=== PATIENT | male | born 1955 | race Caucasian/White ===

== ENCOUNTER → 2018-03-30 09:00 | Emergency (ER) | payer BC, OTHER ==
[~2018-03-30 09:00] MED LIST: Naproxen TAB* 250 MG PO ONE
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
[2018-03-30 09:48] LABS: ABS Basophils 0.1 10^3/ul (0-0.2); ABS Eosinophils 0.2 10^3/ul (0-0.6); ABS Lymphocytes 2.1 10^3/ul (1.0-4.8); ABS Monocytes 0.9 10^3/ul (0-0.8); ABS Neutrophils 7.7 10^3/ul (1.5-7.7); ABS Nucleated RBC 0 10^3/ul; Eosinophil % 1.4 % (0-6); Hematocrit 44 % (42-52); Hemoglobin 15.4 g/dl (14.0-18.0); Lymphocyte % 19.1 % (25-47); Mean Corpuscular HGB Conc 35 g/dl (31-36); Mean Corpuscular Hemoglobin 31 pg (27-31); Mean Corpuscular Volume 88 fL (80-94); Mean Platelet Volume 6.6 um3 (7.4-10.4); Nucleated Red Blood Cells % 0; Platelet Count 268 10^3/ul (150-450); Red Cell Distribution Width 13 % (10.5-15); White Blood Count 10.9 10^3/ul (3.5-10.8)
--- NOTE | 2018-03-30 10:01 | RAD ---
INDICATION: Right ankle pain COMPARISON: None TECHNIQUE: AP, lateral, and oblique views were obtained. FINDINGS: There are no acute bony findings. There is evidence of old fibular fracture with hardware removal. There is an old medial malleolar fracture. There is degenerative change but the tibiotalar joint with cystic changes. There is mild soft tissue swelling. There are vascular calcifications. IMPRESSION: DEGENERATIVE AND POSTTRAUMATIC CHANGES ABOUT THE RIGHT ANKLE. NO ACUTE FINDINGS
[2018-03-30 10:08] LABS: EGFR Non-African American 60.6 (>60); Uric Acid 6.7 mg/dL (4.4-7.6)
[2018-03-30 11:57] VITALS: BP 0/0
== END | disposition home or self-care (01) ==
LOC: ED 09:00
DX: M25.571 Pain in right ankle and joints of right foot (principal); E11.9 Type 2 diabetes mellitus without complications; I10 Essential (primary) hypertension; F17.210 Nicotine dependence, cigarettes, uncomplicated; Z79.84 Long term (current) use of oral hypoglycemic drugs; Z79.899 Other long term (current) drug therapy; Z96.7 Presence of other bone and tendon implants; Z88.8 Allergy status to other drugs, medicaments and biological substances
CPT/HCPCS: 36415; 80053; 83605; 84550; 85025; 85652; 86140; 86618; 99282; A9270-GY

== ENCOUNTER 2019-05-13 08:35 | Emergency (ER) | payer BC, OTHER ==
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
[2019-05-13] MEDS ORDERED: Morphine 4 MG/ML VIAL (1 ml) 4 MG/ML VIAL IV ONE (09:23)
[2019-05-13] MEDS ORDERED: HYDROcodone/ACETAMIN 5-325 MG* 1 TAB PO ONE (09:40)
[2019-05-13 09:43] LABS: Hematocrit 43 % (42-52); Hemoglobin 14.9 g/dL (14.0-18.0); Mean Corpuscular HGB Conc 35 g/dL (31-36); Mean Corpuscular Hemoglobin 32 pg (27-31); Mean Corpuscular Volume 91 fL (80-94); Mean Platelet Volume 6.5 fL (7.4-10.4); Platelet Count 240 10^3/uL (150-450); Red Blood Count 4.73 10^6 /uL (4.18-5.48); Red Cell Distribution Width 13 % (10-15); White Blood Count 9.3 10^3/uL (3.5-10.8)
[2019-05-13 09:54] LABS: Albumin 4.4 g/dL (3.2-5.2); Calcium 9.4 mg/dL (8.6-10.3); Potassium 4.3 mmol/L (3.5-5.0); Total Bilirubin 0.6 mg/dL (0.2-1.0)
[2019-05-13] MEDS: Ondansetron INJ* 2 MG/ML VIAL IV ONE ×2 (09:54→11:11)
[2019-05-13 10:00] LABS: Albumin/Globulin Ratio 1.5 (1-3); BUN/Creatinine Ratio 16.3 (8-20); EGFR African American 64.8 (>60); EGFR Non-African American 53.6 (>60); Globulin 2.9 g/dL (2-4); Total Protein 7.3 g/dL (6.4-8.9)
[2019-05-13] MEDS ORDERED: Iodixanol* (CONTRAST) 320 MG/ML 100 ML SDV IV ONE (10:04)
[2019-05-13 12:09] VITALS: BP 171/94
== END 2019-05-13 12:10 | disposition home or self-care (01) ==
LOC: ED 08:35
DX: S22.49XA Multiple fractures of ribs, unspecified side, initial encounter for closed fracture (principal); V28.4XXA Motorcycle driver injured in noncollision transport accident in traffic accident, initial encounter; Y92.410 Unspecified street and highway as the place of occurrence of the external cause; E11.9 Type 2 diabetes mellitus without complications; I10 Essential (primary) hypertension; K21.9 Gastro-esophageal reflux disease without esophagitis; F17.210 Nicotine dependence, cigarettes, uncomplicated; M50.30 Other cervical disc degeneration, unspecified cervical region; Z79.84 Long term (current) use of oral hypoglycemic drugs; Z79.899 Other long term (current) drug therapy; Z88.8 Allergy status to other drugs, medicaments and biological substances
CPT/HCPCS: 36415; 70450; 71260; 72125; 74177; 80053; 85027; 86850; 86900; 86901; 96374; 96375; 99283; J2270; J2405; Q9967